=== PATIENT | female | born 1960 | race Two or more races ===

== ENCOUNTER 2017-05-31 22:59 | Inpatient (IN) | payer OTHER ==
[~2017-05-31] VITALS: Ht 149.9 cm; Wt 75.7 kg
[2017-05-31] MEDS ORDERED: GLIPIZIDE5 MG ORAL (23:20)
[2017-05-31] MEDS ORDERED: METFORMIN HCL1000 M1 ORAL (23:20)
[2017-05-31 23:30] VITALS: BP 130/54
[2017-05-31] MEDS ORDERED: Enoxaparin 100mg Inj SUBQ ONE ×2 (23:41→23:53)
[2017-05-31] MEDS ORDERED: Aspirin Baby 81mg ORAL ONE (23:45)
[2017-05-31] MEDS ORDERED: Enoxaparin 80mg Inj SUBQ ONE (23:45)
[2017-05-31 23:46] LABS: BASOPHILS % (AUTO) 1.1 % (0.0-2.0); EOSINOPHILS % (AUTO) 1.3 % (0.0-3.0); HEMATOCRIT 36.9 % (37.0-47.0); HEMOGLOBIN 12.8 G/DL (12.0-16.0); LYMPHOCYTES % (AUTO) 47.7 % (20.0-45.0); MEAN CORPUSCULAR VOLUME 90 FL (80-99); MONOCYTES % (AUTO) 7.7 % (1.0-10.0); NEUTROPHILS % (AUTO) 42.2 % (45.0-75.0); PLATELET COUNT 262 K/UL (150-450); RED CELL DISTRIBUTION WIDTH 11.8 % (11.6-14.8)
[2017-05-31 23:47] LABS: APPEARANCE,URINE CLEAR; BILIRUBIN, URINE NEGATIVE (NEGATIVE); COLOR,URINE PALE YELLOW; GLUCOSE, URINE (UA) 4+ (NEGATIVE); KETONES,URINE NEGATIVE (NEGATIVE); LEUKOCYTE ESTERASE ,URINE NEGATIVE (NEGATIVE); NITRITE,URINE NEGATIVE (NEGATIVE); PH,URINE 6 (4.5-8.0); PROTEIN,URINE NEGATIVE (NEGATIVE); UROBILINOGEN,URINE NORMAL MG/DL (0.0-1.0)
[2017-05-31 23:58] LABS: INR 0.9 (0.9-1.1)
[2017-06-01 00:01] LABS: ANION GAP 9 mmol/L (5-15); BLOOD UREA NITROGEN 16 mg/dL (7-18); CALCIUM 9.1 MG/DL (8.5-10.1); CARBON DIOXIDE 25 MMOL/L (21-32); CHLORIDE 97 MMOL/L (98-107); POTASSIUM 4.7 MMOL/L (3.5-5.1); SODIUM 131 MMOL/L (136-145)
[2017-06-01 00:16] LABS: ALANINE AMINOTRANSFERASE 39 U/L (12-78); ALBUMIN 3.5 G/DL (3.4-5.0); ALBUMIN/GLOBULIN RATIO 0.9 (1.0-2.7); ALKALINE PHOSPHATASE 133 U/L (46-116); ASPARTATE AMINO TRANSFERASE 27 U/L (15-37); BILIRUBIN,TOTAL 0.2 MG/DL (0.2-1.0); CKMB 4.9 NG/ML (0.0-3.6); CREATINE KINASE 168 U/L (26-308)
[2017-06-01] MEDS ORDERED: NEURONTIN100 MG ORAL (00:27)
[2017-06-01] MEDS ORDERED: OXYBUTYNIN CHLOR5 M1 ORAL (00:27)
[2017-06-01] MEDS ORDERED: ENALAPRIL MALE2.5 MG ORAL (00:27)
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
[2017-06-01 02:13] VITALS: BP 137/67
[2017-06-01] MEDS ORDERED: Ketorolac 30mg Inj IV PRN (06:15)
[2017-06-01] MEDS ORDERED: Miralax 17gm pkt ORAL PRN (06:15)
[2017-06-01] MEDS ORDERED: dilTIAZem HCl 25mg/5ml Inj IV PRN (06:15)
[2017-06-01] MEDS ORDERED: Albuterol/Ipratropium 3ml neb HHN PRN (06:15)
[2017-06-01] MEDS ORDERED: Enalaprilat 2.5mg/2ml Inj IV PRN (06:15)
[2017-06-01] MEDS ORDERED: Nitroglycerin Subl 0.4mg tab SL PRN (06:15)
[2017-06-01] MEDS ORDERED: Morphine Sulfate 2mg/ml Inj IVP PRN (06:15)
[2017-06-01] MEDS: NovoLOG Insulin Flexpen SUBQ SCH ×4 (07:00→21:03)
[2017-06-01 08:00] VITALS: BP 95/53
[2017-06-01] MEDS ORDERED: Aspirin Baby 81mg ORAL SCH (09:00)
[2017-06-01] MEDS ORDERED: Enalapril 2.5mg tab ORAL SCH (09:00)
[2017-06-01 11:58] VITALS: BP 104/61
[2017-06-01] MEDS: Heparin 5000 units/ml inj SUBQ SCH ×2 (13:46→21:57)
[2017-06-01 15:36] VITALS: BP 97/53
--- NOTE | 2017-06-01 16:03 | Diagnostic Imaging Report ---
Indication: Pain Technique: XRAY Chest 1v Comparison: None Findings: Limited exam with low lung volumes. Patient also rotated to the right. Heart may be borderline enlarged. Mediastinal contours appear sharp. There is no definite focal airspace consolidation, pleural effusion or pneumothorax. Question mild pulmonary vascular prominence, likely artifactually exaggerated due to low lung volumes. No acute osseous abnormality seen. Impression: Limited exam. Question borderline cardiomegaly and mild pulmonary vascular congestion, possibly artifactually exaggerated due to low lung volumes. Consider repeat exam with improved inspiratory effort for better evaluation. No focal airspace consolidation, pleural effusion or pneumothorax.
--- NOTE | 2017-06-01 16:30 | History and Physical ---
History of Present Illness General Date patient seen: Jun 01, 2017 Reason for Hospitalization: Chest Pain Present Illness HPI 57-year-old female with a history of diabetes and high blood pressure presented to ER with chief complaint of chest pain. she was diaphoretic and nauseous. She rested in a resolved in 20 minutes. He came back an hour later. She is admitted to telemetry for ACS. Allergies: Coded Allergies: No Known Allergies (Unverified , 05/31/17) Medication History Scheduled Enalapril Maleate* (Enalapril Maleate*), 2.5 MG ORAL DAILY, (Reported) Gabapentin* (Neurontin*), 100 MG ORAL THREE TIMES A DAY, (Reported) Glipizide* (Glipizide*), 5 MG ORAL BIDAC, (Reported) Metformin Hcl* (Metformin Hcl*), 1,000 MG ORAL BID, (Reported) Oxybutynin Chloride (Oxybutynin Chloride), 5 MG ORAL BID, (Reported) Patient History Healthcare decision maker Resuscitation status Full Code Advanced Directive on File Past Medical/Surgical History Past Medical/Surgical History: (1) Diabetes mellitus (2) Obesity (BMI 30.0-34.9) Review of Systems All Other Systems: negative except mentioned in HPI Physical Exam General Appearance: WD/WN Lines, tubes and drains: peripheral HEENT: normocephalic, atraumatic Neck: non-tender, normal alignment Respiratory/Chest: chest wall non-tender, lungs clear Breasts: no masses Cardiovascular/Chest: normal peripheral pulses Abdomen: normal bowel sounds, non tender Genitourinary/Rectal: normal genital exam, normal rectal exam Extremities: normal range of motion Skin Exam: normal pigmentation Last 24 Hour Vital Signs Date Time Temp Pulse Resp B/P (MAP) Pulse Ox O2 Delivery O2 Flow Rate FiO2 06/01/17 15:36 97.9 69 18 97/53 99 Room Air 06/01/17 12:00 78 06/01/17 11:58 97.3 72 18 104/61 98 Room Air 06/01/17 09:00 95/53 06/01/17 08:00 88 06/01/17 08:00 96.9 84 18 95/53 96 Room Air 06/01/17 03:11 82 22 137/67 100 06/01/17 02:13 97.9 82 22 137/67 100 Room Air 100 05/31/17 23:30 84 17 130/54 100 Room Air 05/31/17 23:30 84 17 Room Air 100 05/31/17 23:15 97.9 81 18 156/58 100 Room Air Intake and Output 05/31/17 06/01/17 19:00 07:00 Intake Total 20 ml Balance 20 ml Intake Oral 20 ml # Voids 1 Laboratory Tests Test 05/31/17 23:25 06/01/17 11:55 White Blood Count 7.0 K/UL (4.8-10.8) Red Blood Count 4.10 M/UL (4.20-5.40) L Hemoglobin 12.8 G/DL (12.0-16.0) Hematocrit 36.9 % (37.0-47.0) L Mean Corpuscular Volume 90 FL (80-99) Mean Corpuscular Hemoglobin 31.2 PG (27.0-31.0) H Mean Corpuscular Hemoglobin Concent 34.6 G/DL (32.0-36.0) Red Cell Distribution Width 11.8 % (11.6-14.8) Platelet Count 262 K/UL (150-450) Mean Platelet Volume 7.2 FL (6.5-10.1) Neutrophils (%) (Auto) 42.2 % (45.0-75.0) L Lymphocytes (%) (Auto) 47.7 % (20.0-45.0) H Monocytes (%) (Auto) 7.7 % (1.0-10.0) Eosinophils (%) (Auto) 1.3 % (0.0-3.0) Basophils (%) (Auto) 1.1 % (0.0-2.0) Prothrombin Time 9.9 SEC (9.30-11.50) Prothromb Time International Ratio 0.9 (0.9-1.1) Activated Partial Thromboplast Time 27 SEC (23-33) Urine Color Pale yellow Urine Appearance Clear Urine pH 6 (4.5-8.0) Urine Specific [place] 1.010 (1.005-1.035) Urine Protein Negative (NEGATIVE) Urine Glucose (UA) 4+ (NEGATIVE) H Urine Ketones Negative (NEGATIVE) Urine Occult Blood Negative (NEGATIVE) Urine Nitrite Negative (NEGATIVE) Urine Bilirubin Negative (NEGATIVE) Urine Urobilinogen Normal MG/DL (0.0-1.0) Urine Leukocyte Esterase Negative (NEGATIVE) Sodium Level 131 MMOL/L (136-145) L Potassium Level 4.7 MMOL/L (3.5-5.1) Chloride Level 97 MMOL/L (98-107) L Carbon Dioxide Level 25 MMOL/L (21-32) Anion Gap 9 mmol/L (5-15) Blood Urea Nitrogen 16 mg/dL (7-18) Creatinine 1.0 MG/DL (0.55-1.30) Estimat Glomerular Filtration Rate 56.8 mL/min (>60) Glucose Level 476 MG/DL (74-106) H Calcium Level 9.1 MG/DL (8.5-10.1) Total Bilirubin 0.2 MG/DL (0.2-1.0) Aspartate Amino Transf (AST/SGOT) 27 U/L (15-37) Alanine Aminotransferase (ALT/SGPT) 39 U/L (12-78) Alkaline Phosphatase 133 U/L (46-116) H Total Creatine Kinase 168 U/L (26-308) Creatine Kinase MB 4.9 NG/ML (0.0-3.6) H Creatine Kinase MB Relative Index 2.9 Troponin I 1.280 ng/mL (0.000-0.056) 0.989 ng/mL (0.000-0.056) Total Protein 7.4 G/DL (6.4-8.2) Albumin 3.5 G/DL (3.4-5.0) Globulin 3.9 g/dL Albumin/Globulin Ratio 0.9 (1.0-2.7) L Height (Feet): 4 Height (Inches): 11.00 Weight (Pounds): 167 Medications Current Medications Medications (Trade) Dose Ordered Sig/Kristal Route PRN Reason Start Time Stop Time Status Last Admin Dose Admin Acetaminophen (Tylenol) 650 mg Q4H PRN ORAL FEVER 06/01/17 06:15 07/01/17 06:14 Albuterol/ Ipratropium (Albuterol/ Ipratropium) 3 ml EVERY 4 HOURS PRN HHN Shortness of Breath 06/01/17 06:15 06/06/17 06:14 Aspirin (ASA) 162 mg DAILY ORAL 06/01/17 09:00 07/01/17 08:59 06/01/17 09:22 Dextrose (Dextrose 50%) STAT PRN IV Hypoglycemia 06/01/17 06:15 07/01/17 06:14 Diltiazem HCl (Cardizem) 10 mg EVERY HOUR PRN IV heart rate more than 120, 06/01/17 06:15 07/01/17 06:14 Enalapril Maleate (Vasotec) 2.5 mg DAILY ORAL 06/01/17 09:00 07/01/17 08:59 Enalaprilat (Vasotec) 2.5 mg EVERY 6 HOURS PRN IV sbp more than 160 06/01/17 06:15 07/01/17 06:14 Gabapentin (Neurontin) 100 mg THREE TIMES A DAY ORAL 06/01/17 09:00 07/01/17 08:59 06/01/17 13:45 Heparin Sodium (Porcine) (Heparin 5000 units/ml) 5,000 units EVERY 8 HOURS SUBQ 06/01/17 14:00 07/01/17 13:59 06/01/17 13:46 Insulin Aspart (NovoLOG) BEFORE MEALS AND HS SUBQ 06/01/17 06:30 07/01/17 06:29 06/01/17 11:51 Ketorolac Tromethamine (Toradol 30mg) 30 mg Q6HR PRN IV moderate pain ( 4-6) 06/01/17 06:15 06/06/17 06:14 Morphine Sulfate (Morphine Sulfate) 2 mg EVERY 4 HOURS PRN IVP severe Pain (Pain Scale 7-10) 06/01/17 06:15 06/08/17 06:14 Nitroglycerin (Ntg) 0.4 mg Every 5 Minutes PRN SL Prn Chest Pain 06/01/17 06:15 07/01/17 06:14 Ondansetron HCl (Zofran) 4 mg Q6H PRN IVP Nausea & Vomiting 06/01/17 06:15 07/01/17 06:14 Pantoprazole (Protonix) 40 mg DAILY ORAL 06/01/17 09:00 07/01/17 08:59 06/01/17 09:22 Polyethylene Glycol (Miralax) 17 gm DAILYPRN PRN ORAL Constipation 06/01/17 06:15 07/01/17 06:14 Temazepam (Restoril) 15 mg HSPRN PRN ORAL Insomnia 06/01/17 06:15 06/08/17 06:14 Assessment/Plan Problem List: (1) ACS (acute coronary syndrome) ICD Codes: I24.9 - Acute ischemic heart disease, unspecified SNOMED: 658575192 (2) NSTEMI, initial episode of care ICD Codes: I21.4 - Non-ST elevation (NSTEMI) myocardial infarction SNOMED: 862064279, 20682145 (3) Obesity (BMI 30.0-34.9) ICD Codes: E66.9 - Obesity, unspecified SNOMED: 070484287, 23524815 (4) Diabetes mellitus ICD Codes: E11.9 - Type 2 diabetes mellitus without complications SNOMED: 76991668 Assessment/Plan serial ekg, troponin, echo cardio to see sliding scale ELKE HUANG Jun 01, 2017 16:30
--- NOTE | 2017-06-01 17:53 | Cardiology Report ---
APPROVED REPORT EKG Measurement Heart [id number] CA [id number] [id number] Normal sinus rhythm Inferior infarct, age undetermined Possible Anterior infarct, age undetermined Abnormal ECG
[2017-06-01 20:00] VITALS: BP 122/60
--- NOTE | 2017-06-01 20:24 | Cardiology Progress Note ---
Assessment/Plan Assessment/Plan acs need cath reepat trop and echo and ekg ass heparin statin ntp transfer [facility] called for anders ifapproved adn if bed availabel d/w pt [id number] Objective Last 24 Hour Vital Signs Date Time Temp Pulse Resp B/P (MAP) Pulse Ox O2 Delivery O2 Flow Rate FiO2 06/01/17 16:00 62 06/01/17 15:36 97.9 69 18 97/53 99 Room Air 06/01/17 12:00 78 06/01/17 11:58 97.3 72 18 104/61 98 Room Air 06/01/17 09:00 95/53 06/01/17 08:00 88 06/01/17 08:00 96.9 84 18 95/53 96 Room Air 06/01/17 03:11 82 22 137/67 100 06/01/17 02:13 97.9 82 22 137/67 100 Room Air 100 05/31/17 23:30 84 17 130/54 100 Room Air 05/31/17 23:30 84 17 Room Air 100 05/31/17 23:15 97.9 81 18 156/58 100 Room Air Intake and Output 05/31/17 06/01/17 19:00 07:00 Intake Total 20 ml Balance 20 ml Intake Oral 20 ml # Voids 1 Laboratory Tests Test 05/31/17 23:25 06/01/17 11:55 White Blood Count 7.0 K/UL (4.8-10.8) Red Blood Count 4.10 M/UL (4.20-5.40) L Hemoglobin 12.8 G/DL (12.0-16.0) Hematocrit 36.9 % (37.0-47.0) L Mean Corpuscular Volume 90 FL (80-99) Mean Corpuscular Hemoglobin 31.2 PG (27.0-31.0) H Mean Corpuscular Hemoglobin Concent 34.6 G/DL (32.0-36.0) Red Cell Distribution Width 11.8 % (11.6-14.8) Platelet Count 262 K/UL (150-450) Mean Platelet Volume 7.2 FL (6.5-10.1) Neutrophils (%) (Auto) 42.2 % (45.0-75.0) L Lymphocytes (%) (Auto) 47.7 % (20.0-45.0) H Monocytes (%) (Auto) 7.7 % (1.0-10.0) Eosinophils (%) (Auto) 1.3 % (0.0-3.0) Basophils (%) (Auto) 1.1 % (0.0-2.0) Prothrombin Time 9.9 SEC (9.30-11.50) Prothromb Time International Ratio 0.9 (0.9-1.1) Activated Partial Thromboplast Time 27 SEC (23-33) Urine Color Pale yellow Urine Appearance Clear Urine pH 6 (4.5-8.0) Urine Specific [place] 1.010 (1.005-1.035) Urine Protein Negative (NEGATIVE) Urine Glucose (UA) 4+ (NEGATIVE) H Urine Ketones Negative (NEGATIVE) Urine Occult Blood Negative (NEGATIVE) Urine Nitrite Negative (NEGATIVE) Urine Bilirubin Negative (NEGATIVE) Urine Urobilinogen Normal MG/DL (0.0-1.0) Urine Leukocyte Esterase Negative (NEGATIVE) Sodium Level 131 MMOL/L (136-145) L Potassium Level 4.7 MMOL/L (3.5-5.1) Chloride Level 97 MMOL/L (98-107) L Carbon Dioxide Level 25 MMOL/L (21-32) Anion Gap 9 mmol/L (5-15) Blood Urea Nitrogen 16 mg/dL (7-18) Creatinine 1.0 MG/DL (0.55-1.30) Estimat Glomerular Filtration Rate 56.8 mL/min (>60) Glucose Level 476 MG/DL (74-106) H Calcium Level 9.1 MG/DL (8.5-10.1) Total Bilirubin 0.2 MG/DL (0.2-1.0) Aspartate Amino Transf (AST/SGOT) 27 U/L (15-37) Alanine Aminotransferase (ALT/SGPT) 39 U/L (12-78) Alkaline Phosphatase 133 U/L (46-116) H Total Creatine Kinase 168 U/L (26-308) Creatine Kinase MB 4.9 NG/ML (0.0-3.6) H Creatine Kinase MB Relative Index 2.9 Troponin I 1.280 ng/mL (0.000-0.056) 0.989 ng/mL (0.000-0.056) Total Protein 7.4 G/DL (6.4-8.2) Albumin 3.5 G/DL (3.4-5.0) Globulin 3.9 g/dL Albumin/Globulin Ratio 0.9 (1.0-2.7) ROXY LU Jun 01, 2017 20:24
[2017-06-01 20:59] VITALS: BP 122/60
[2017-06-01] MEDS ORDERED: Nitroglycerin 2% oint pkt TOPIC SCH (21:00)
[2017-06-01] MEDS ORDERED: Heparin 5000 units/ml inj IV ONE (21:00)
[2017-06-01] MEDS ORDERED: Atorvastatin 80mg tab ORAL SCH (21:00)
[2017-06-01 21:03] LABS: HEMATOCRIT 38.9 % (37.0-47.0); HEMOGLOBIN 13.2 G/DL (12.0-16.0); MEAN CORPUSCULAR VOLUME 91 FL (80-99); PLATELET COUNT 259 K/UL (150-450); RED BLOOD COUNT 4.28 M/UL (4.20-5.40); RED CELL DISTRIBUTION WIDTH 11.7 % (11.6-14.8); WHITE BLOOD COUNT 5.6 K/UL (4.8-10.8)
--- NOTE | 2017-06-01 23:15 | Consultation ---
DATE OF CONSULTATION: 06/01/2017 CARDIOLOGY CONSULTATION CONSULTING PHYSICIAN: Ramiro Li M.D. REFERRING PHYSICIAN: Deyvi Rios M.D. REASON FOR REFERRAL: Chest pain. HISTORY OF PRESENT ILLNESS: This is a 57-year-old female with history of diabetes and hypertension, presented to the emergency room at [facility] yesterday with two episodes of chest pain exactly in the center of the chest radiating down to the left arm with subsequent nausea and diaphoresis. The first episode lasted approximately 10 minutes. A second episode also lasted 10 minutes. She was brought to the emergency room. She has not had the pain ever since. Troponin levels were elevated at 1.28. She has never had this pain on prior occasions. There is no PND or orthopnea. No palpitations. No dizziness or lightheadedness. PAST MEDICAL HISTORY: Positive for high blood pressure and diabetes. No history of heart attack. No cancer. No stroke. No hepatitis, tuberculosis, asthma, or emphysema. No ulcers. No kidney problems, liver problems, thyroid problems, anemia, arthritis, HIV, AIDS, or blood clots. ALLERGIES: No allergies to medications. SOCIAL HISTORY: She does not smoke. Does not drink alcoholic beverages. No drug use. Lives at home. REVIEW OF SYSTEMS: GASTROINTESTINAL: with episodes of nausea and vomiting yesterday, otherwise negative. GENITOURINARY: Negative. PULMONARY: Negative. CONSTITUTIONAL: Negative. NEUROLOGIC: Numbness and tingling sensation in the left leg. PHYSICAL EXAMINATION: GENERAL: Shows obese female, in no respiratory distress. NECK: Supple. No jugular venous distention. No abdominojugular reflux noted. LUNGS: Clear to auscultation and percussion. CARDIAC: S1 is normal. S2 is normal. Regular rate and rhythm. No heaves, thrills, or gallops noted. ABDOMEN: Soft and nontender. Positive bowel sounds. EXTREMITIES: There is no clubbing, cyanosis, nor is there any edema. NEUROLOGICAL: She is awake, alert, responsive, and in no apparent distress. LABORATORY AND DIAGNOSTIC DATA: A venous duplex of the lower extremity shows no evidence of DVT. Chest x-ray is read as questionable borderline cardiomegaly, mild vascular congestion, possibly artifactual exaggerated lower lung volumes. Repeat chest x-ray was recommended. Sodium was 131, potassium 4.7, chloride 97, bicarbonate 25, BUN of 16, creatinine 1.0, and a glucose of 476. Calcium is 9.1. Alkaline phosphate is 133. CK 160. Troponin first one is 1.28 and subsequently 0.99. Albumin of 3.5. INR 0.9 and PTT of 27. Pba-IA-pfzrhdpvi myocardial infarction. EKG shows sinus rhythm. Minor ST elevation of 0.5 in V3 with Q-waves in V3. There may be also some minor ST-segment elevation of less than V1 and V2 with some biphasic T-waves in those leads. No other ST or T-wave abnormalities. ASSESSMENT: 1. Acute coronary syndrome/unstable angina. 2. Diabetes mellitus type 2, poorly controlled. 3. History of hypertension. RECOMMENDATIONS: Dr. Rios, this patient was seen in cardiac consultation. The patient's history is suggestive of an acute coronary syndrome. We will start the patient on heparin. She should be continued on aspirin and statins for the time being. Blood sugar needs to be controlled better. She has actually received 1 dose of Lovenox in the emergency room last night and was started on intravenous heparin drip. I have placed a call to transfer center at [facility] and discussed with them that the ash kier boiler to put the patient's name on for possibility of a catheter tomorrow. My hope is to have her transferred to [facility] for cardiac catheterization although that is pending approval of insurance and availability of beds for transfer to the hospital. In the meantime, nitro paste and nitroglycerin and no beta razia be administered and the patient will be followed with serial enzymes and serial EKGs. Ramiro Li M.D. DR: JOHNNY JOB#: [id number] CC:
--- NOTE | 2017-06-02 06:32 | Cardiology Report ---
APPROVED REPORT EXAM: Two-dimensional and M-mode echocardiogram with Doppler and color Doppler. INDICATION LV function M-Mode DIMENSIONS IVSd1.2 (0.7-1.1cm)Left Atrium (MM)4.1 (1.6-4.0cm) LVDd3.7 (3.5-5.6cm)Aortic Root2.8 (2.0-3.7cm) PWd1.0 (0.7-1.1cm)Aortic Cusp Exc.1.8 (1.5-2.0cm) LVDs2.1 (2.5-4.0cm) PWs2.1 cm Normal left ventricular chamber size, systolic function and wall motion. Left ventricular ejection fraction estimated to be 60-65 %. No evidence of left ventricular hypertrophy. No evidence of pericardial effusion. Left atrial size at upper limits of normal. Right cardiac chamber sizes are within normal limits. Mild focal aortic valve sclerosis with adequate cusp excursion. Mildly thickened mitral valve leaflets with normal excursion. Mild mitral annulus and aortic root calcification. Normal pulmonic valve structure. Normal tricuspid valve structure. IVC at normal size with physiologic collapse. A color flow and spectral Doppler study was performed and revealed: No aortic regurgitation. Mild mitral regurgitation. Mitral diastolic velocities suggest reduced left ventricular relaxation c/w mild LV diastolic dysfunction (Grade I). Trace to mild tricuspid regurgitation. Tricuspid systolic velocities suggests peak right ventricular systolic pressure of 36 mmHg, consistent with borderline mild pulmonary hypertension. No pulmonic regurgitation present.
--- NOTE | 2017-06-02 09:59 | Discharge Summary ---
Discharge Summary Hospital Course Date of Admission Jun 01, 2017 at 00:44 Date of Discharge Jun 01, 2017 at 22:50 Admitting Diagnosis Chest pain/Acute Coronary Syndrome CAROL Gannon is a 57 year old female who was admitted on Jun 01, 2017 at 00:44 for Chest Pain/Acute Coronary Syndrome Hospital Course [id number] Discharge Discharge Disposition Patient was discharged to [facility] Discharge Diagnoses: Julissa Anand NP Jun 02, 2017 09:59
--- NOTE | 2017-06-03 00:45 | Discharge Summary 2 SIG ---
DATE OF ADMISSION: 06/01/2017 DATE OF DISCHARGE: 06/01/2017 PERINATAL BREASTFEEDING ASSISTANT: Ramiro Li M.D. BRIEF HOSPITAL COURSE: The patient is a 57-year-old female with history of diabetes and hypertension, presented to ED complaining of two episodes of chest pain, located at the center of the chest, radiating down to the arm with subsequent nausea and diaphoresis. Both episodes lasted approximately 10 minutes. She was taken to [place] where on evaluation, initial troponin was 1.28. Chest x-ray done showed a borderline cardiomegaly with mild vascular congestion. Venous duplex of lower extremity was negative for DVT. EKG showed minor ST elevation in V3 with Q-waves in V3. There were some minor ST-segment elevation in V1 and V2 with biphasic T-waves in those leads. She was given Lovenox injection at ED and was eventually started on heparin drip. She was given aspirin and Lipitor. She was given Nitro-Bid t.i.d. She had an echocardiogram done that showed ejection fraction of 60% to 65%. She was eventually transferred to [facility] for a heart catheterization. FINAL DIAGNOSES: 1. Acute coronary syndrome. 2. Diabetes mellitus type 2. 3. Hypertension. 4. Obesity. DISPOSITION: The patient was discharged for cardiac catheterization. Deyvi Rios M.D. I have been assigned to dictate discharge summary on this account and I was not involved in the patient's management. Julissa Anand N.P. DR: FE JOB#: [id number] CC:
--- NOTE | 2017-06-06 13:15 | Diagnostic Imaging Report ---
APPROVED REPORT CPT Code: 64581 Present Symptoms Comments: R/O DVT BILATERAL: Imaging reveals a patent deep venous system bilaterally. There is no evidence of thrombus within the femoral, popliteal or tibial segments. The greater saphenous veins are also within normal limits. Doppler indicates normal spontaneous flow within these segments.
== END 2017-06-01 22:50 | disposition short-term general hospital (02) | DRG 190 ==
LOC: EMR 23:28 → EDBEDREQ 06-01 00:26 → 2E 06-01 00:44 → EDBEDREQ 06-01 00:59 → 2E 06-01 03:07
DX: I21.4 Non-ST elevation (NSTEMI) myocardial infarction (principal); E11.65 Type 2 diabetes mellitus with hyperglycemia; E66.9 Obesity, unspecified; I10 Essential (primary) hypertension; I24.9 Acute ischemic heart disease, unspecified; I20.0 Unstable angina
CPT/HCPCS: 36415; 71045; 80053; 81003; 82550; 82553; 82962; 84484; 85007; 85025; 85610; 85730; 93005; 93306; 93970; 99285; J1815